=== PATIENT | female | born 1930 | race Caucasian/White ===

== ENCOUNTER 2016-11-22 07:53 | Observation (INO) ==
[2016-11-22] MEDS ORDERED: Aspirin 81 MG TAB.CHEW PO ONE (07:55)
[2016-11-22] MEDS ORDERED: Nitroglycerin 0.4 MG TAB.SUBL SL PRN (07:57)
[2016-11-22 08:22] LABS: Basophils % 0.2 %; Eosinophils # 0.3 K/mcL (0.0-0.6); Eosinophils % 2.4 %; Hematocrit 32.9 % (35.3-44.9); Hemoglobin 11.3 g/dL (11.5-15.4); Immature Granulocytes % 0.4 % (0-4); Lymphocytes # 1.5 K/mcL (0.6-4.6); Lymphocytes % 13.1 %; Mean Corpuscular HGB Conc 34.3 g/dL (31.6-35.5); Mean Corpuscular Hemoglobin 32.2 pg (28.0-33.3); Mean Corpuscular Volume 93.7 fL (83.0-100.0); Mean Platelet Volume 10.9 fL (9.4-12.4); Monocytes # 0.5 K/mcL (0.0-1.3); Monocytes % 4.5 %; Neutrophils # 9.1 K/mcL (1.6-8.9); Platelet Count 126 K/mcL (140-400); Red Blood Count 3.51 M/mcL (3.82-4.97); Red Cell Distribution Width 12.6 % (11.5-14.5); Segmented Neutrophils % 79.4 %
[2016-11-22 08:23] LABS: INR 1.1; Prothrombin Time 11.5 Seconds (9.4-12.1)
[2016-11-22 08:26] LABS: Activated Partial Thrombo Time 26.4 Seconds (26.0-36.0)
--- NOTE | 2016-11-22 08:28 | Emergency Department Note ---
Disposition Clinical Impression: Chest pain, Diabetes, Dehydration, Renal failure Disposition: Admitted As Inpatient Condition: Fair Referrals: Say Vidales [Primary Care Provider] - Forms: ED Satisfaction Letter Time of Disposition: 10:55 (gustavo rojas [facility]) Chest Pain HPI - General Chief Complaint: ED Chest Pain Stated Complaint: chest pain/ elevated glucose Time Seen by Provider: 11/22/16 08:00 Source: patient, EMS Mode of arrival: EMS Limitations: other (dementia) - History of Present Illness Pt complaint: chest pain Onset (ago): unknown Duration: now resolved Onset: awoke with symptoms Pain Location: substernal Severity: moderate, severe Severity scale (1-10): 7 Quality: tightness Pain Radiation: none Improves with: nothing Worsens with: nothing Associated symptoms: Denies: nausea, vomiting, diaphoresis, dyspnea, sense of impending doom, syncope, palpitations, fever, cough, leg swelling Treatments prior to arrival chest pain: aspirin - Related Data Home Medications Medication Instructions Recorded Confirmed Aspirin 81 mg PO DAILY 12/29/14 11/22/16 Insulin Glargine,Hum.rec.anlog 8 units SQ HS 12/29/14 11/22/16 [Lantus Solostar] Insulin LISPRO [HumaLOG] See Protocol SQ TIDWM 12/29/14 11/22/16 Levothyroxine [Synthroid] 88 mcg PO DAILY 12/29/14 11/22/16 Raloxifene [Evista] 60 mg PO DAILY 12/29/14 11/22/16 Previous Rx's Medication Instructions Recorded Acetaminophen [Tylenol] 650 mg PO Q6HR PRN #30 tablet 01/03/15 Carbidopa/Levodopa [Sinemet 1 each PO TID tablet 04/09/16 10] Memantine [Namenda] 10 mg PO BID #0 tablet 04/09/16 Allergies Allergy/AdvReac Type Severity Reaction Status Date / Time Sulfa (Sulfonamide Allergy Hives Verified 04/04/16 08:45 Antibiotics) All systems ED: reviewed and negative except as stated. Review of Systems: As Per HPI Constitutional: Denies: fever Eyes: Denies: eye pain ENT ED: Denies: ear pain Cardiovascular: Reports: chest pain Respiratory: Denies: cough Gastrointestinal: Denies: abdominal pain, nausea Genitourinary: Denies: urgency Musculoskeletal: Denies: back pain Integumentary: Denies: rash Neurological: Denies: headache Psychiatric: Denies: anxiety Endocrine: Denies: fatigue Hematological/Lymphatic: Denies: easy bleeding Allergic/Immunologic: Denies: facial swelling Chest Pain PMH - Past Medical History Medical history: Reports: dementia, diabetes, hypertension, thyroid disease Psychiatric history: Reports: no psych history - Social History Smoking Status: Never smoker Alcohol use: Reports: none Drug use: Reports: none Physical Exam - General Limitations: other (demetia) General appearance: alert, in no apparent distress, cachectic - Head Head exam: atraumatic, normocephalic, normal inspection - Eye Eye exam: Present: normal appearance, PERRL, EOMI - ENT ENT exam: normal exam, normal oropharynx, mucous membranes moist, normal external ear exam - Neck Neck exam: Present: normal inspection, full ROM, trachea midline - Chest Chest inspection: Present: normal inspection, symmetric chest wall rise - Respiratory Respiratory exam: Present: normal lung sounds bilaterally - Cardiovascular Cardiovascular exam: Present: regular rate, normal rhythm, normal heart sounds - Abdominal Exam Abdominal exam: Present: soft, Non-Tender, normal bowel sounds. Absent: mass, pulsatile mass - Extremities Exam Extremities exam: Present: normal inspection, full ROM, normal capillary refill. Absent: tenderness, pedal edema, joint swelling, calf tenderness - Expanded Lower Extremity Exam Neurovascular/Tendon exam: Present: normal capillary refill, normal fine/light touch Gait: observed and normal - Back Exam Back exam: Present: normal inspection, full ROM. Absent: muscle spasm - Neurological Exam Neurological exam: Present: alert, oriented X3, CN II-XII intact, normal gait - Psychiatric Psychiatric exam: Present: normal affect, normal mood - Skin Skin exam: Present: warm, dry, intact, normal color Course Course Narrative: pt seen and examined admitted due to renal failure and dehydratio showing kidney function decline Vital Signs Temperature 98.5 F 11/22/16 07:55 Pulse Rate 88 11/22/16 07:55 Respiratory Rate 18 11/22/16 07:55 Blood Pressure 153/72 11/22/16 07:55 O2 Sat by Pulse Oximetry 96 11/22/16 07:55 Temperature 98.5 F 11/22/16 07:58 Pulse Rate 88 11/22/16 07:58 Respiratory Rate 18 11/22/16 07:58 Blood Pressure 153/72 11/22/16 07:58 O2 Sat by Pulse Oximetry 98 11/22/16 08:05 Oxygen Delivery Oxygen Delivery Room Air Chest Pain - MDM Narrative Medical decision making narrative: poorly controlled diabetes ad metabolic imbalance - Differential Diagnosis Likely: chest pain - Medical Records Medical records reviewed: Yes I reviewed the patient's medical records. - Lab Data Lab results reviewed: Yes I reviewed the patient's lab results. Lab Results 11/22/16 11/22/16 Range/Units 08:05 08:06 POC Glucose 450 H* 403 H* (58-89) - Radiology Data Radiology results reviewed: Yes I reviewed the patient's radiology results. ITS Impressions Chest X-Ray 11/22/16 07:55 IMPRESSION: Overall stable appearing chest without acute cardiopulmonary process. D/ / Baljeet Massey MD / Baljeet Massey MD Interpreting Provider: Baljeet Massey MD - EKG Data EKG attestation: Yes I reviewed and interpreted this EKG. EKG results narrative: Sinus rhythm and incomplete right bundle-branch block rate 88 OK 167 QRS 91 QT 350 access -73 Heart Score - Score History: Slightly Suspicious EKG: Normal Age: Greater than 65 Risk Factors: 1-2 risk factors Troponin: Less than normal limit HEART Score Total: 3 Critical Care Time Critical Care Time: No
[2016-11-22 08:33] LABS: Calcium 9.6 mg/dL (8.6-10.8); Potassium 4.7 mEq/L (3.5-4.5)
[2016-11-22] MEDS ORDERED: Insulin Regular, Human 100 UNIT/ML SQ ONE (08:38)
[2016-11-22 09:29] LABS: Bilirubin,Urine Negative (Negative); Blood,Urine Negative (Negative); Clarity,Urine Clear (Clear); Color,Urine Yellow (Yellow); Glucose,Urine (UA) 500 mg/dL (Normal); Ketones,Urine 80 mg/dL (Negative); Leukocyte Esterase,Urine Negative (Negative); Nitrite,Urine Negative (Negative); Protein,Urine Negative (Neg-Trace); Urobilinogen,Urine Normal (Normal)
[2016-11-22] MEDS ORDERED: 0.9 % Sodium Chloride 1,000 ML IVC ONE (10:34)
[2016-11-22] MEDS ORDERED: Dextrose Gel 15 GM PO PRN ×2 (11:12)
[2016-11-22] MEDS ORDERED: *HR* Dextrose 50 % in Water (Syg) 50 ML SYRINGE IVP PRN (11:12)
[2016-11-22] MEDS ORDERED: Acetaminophen 325 MG TABLET PO PRN (11:12)
[2016-11-22] MEDS ORDERED: 0.9 % Sodium Chloride 1,000 ML IVC SCH (11:12)
[2016-11-22] MEDS ORDERED: Naloxone 0.4 MG/ML INJ IVP PRN (11:12)
[2016-11-22] MEDS ORDERED: D5% in Water 1,000 ML IVC PRN (11:12)
[2016-11-22] MEDS ORDERED: Ondansetron ODT 4 MG TAB.RAPDIS SL PRN (11:12)
[2016-11-22] MEDS: Insulin LISPRO 300 UNITS/3 ML VIAL SQ SCH ×2 (12:14→16:44)
--- NOTE | 2016-11-22 14:25 | Internal Med History&Physical ---
Date of Encounter: 11/22/16 Time of Encounter: 13:50 Assessment and Plan (1) Chest pain Current visit: Yes Status: Acute Now resolved. Etiology not certain. Repeat cardiac enzymes were ordered through emergency room. Qualifiers: Chest pain type: precordial pain Qualified Code(s): R07.2 - Precordial pain (2) Parkinson disease Current visit: No Status: Chronic Continue Sinemet (3) Diabetes Current visit: Yes Status: Acute Hemoglobin A1c was 5.1% on 04/10/2016. Continue Levemir and do Accu-Cheks with SSI. Qualifiers: Diabetes mellitus type: type 2 Diabetes mellitus complication status: with kidney complications Diabetes mellitus complication detail: with chronic kidney disease Diabetes mellitus intermediate frame tender insulin use: with intermediate frame tender use Chronic kidney disease stage: stage 3 (moderate) Qualified Code(s): E11.22 - Type 2 diabetes mellitus with diabetic chronic kidney disease; N18.3 - Chronic kidney disease, stage 3 (moderate); Z79.4 - intermediate (current) use of insulin (4) CKD (chronic kidney disease) stage 3, GFR 30-59 ml/min Current visit: Yes Status: Acute She was unaware of this. Will monitor renal indices as needed. (5) Hypertension Current visit: No Status: Chronic She was given Toprol and lisinopril at the March 2016 discharge. Neither of these are listed on her home medication list at present. We will start Toprol Qualifiers: Hypertension type: essential hypertension Qualified Code(s): I10 - Essential (primary) hypertension (6) Hypothyroidism Current visit: No Status: Chronic TSH was normal at 1.338 on 04/10/2016. Continue present dose Synthroid. Qualifiers: Hypothyroidism type: unspecified Qualified Code(s): E03.9 - Hypothyroidism , unspecified Internal Medicine - H&P: HPI Chief complaint: Chest pain Admitted From: Home Plans for Post Hospital Care: Home History of present illness: Ms. Moore is a 85 year old female who came to emergency room stating she was awakened approximately 0500 by a discomfort in her chest that radiated to her back. She describes it as a sensation of "someone sitting on me". She rates its severity at a 10 over 10. She waited until her daughter came approximately 0700 and told her daughter about the pain. She was brought to emergency room and evaluated and admitted to MedSurg floor for ongoing care needs. She states she is pain-free at the present time. She denies previous similar episode of pain. She denies dyspnea or cough. Her cardiovascular history is significant for hypertension but no HI heart failure angina DVT or pulmonary embolus. An echocardiogram June 2013 showed mild concentric LVH with LVEF 70% and mild LV diastolic dysfunction. No significant valvular abnormalities were seen. She does not remember if she has had EST or heart catheter in the past. Past Med Surg Social Fam HX - Past Medical History Medical history: cancer, dementia, diabetes, hypertension, thyroid disease Psychiatric history: no psych history - Social History Smoking Status: Never smoker Smokeless Tobacco Status: No Alcohol use: none Drug use: none - Family History Mother Adopted: No Family Member Ethnicity: Non- Living Status: Hx Family Cardiac Disorders: No Hx Family Respiratory Disorders: No Hx Family Cancer: Yes Hx Family GI Disorders: No Hx Family Endocrine Disorder: No Hx Family Neuromuscular Disorders: No Hx Family Neurologic Disorders: No Hx Family HEENT Disorders: No Hx Family Autoimmune Disorders: No Internal Medicine - H&P: Meds Aspirin 81 mg PO DAILY 12/29/14 [History] Insulin Glargine,Hum.rec.anlog [Lantus Solostar] 8 units SQ HS 12/29/14 [History ] Insulin LISPRO [HumaLOG] See Protocol SQ TIDWM 12/29/14 [History] Levothyroxine [Synthroid] 88 mcg PO DAILY 12/29/14 [History] Raloxifene [Evista] 60 mg PO DAILY 12/29/14 [History] Acetaminophen [Tylenol] 650 mg PO Q6HR PRN #30 tablet 01/03/15 [Rx] Carbidopa/Levodopa 10/100 [Sinemet 10/100] 1 each PO TID tablet 04/09/16 [Rx] Memantine [Namenda] 10 mg PO BID #0 tablet 04/09/16 [Rx] Allergies Sulfa (Sulfonamide Antibiotics) Allergy (Verified 04/04/16 08:45) Hives All Systems PM: A 10-system review of systems was performed and is negative for pertinent findings except as documented above in the HPI. Review of systems: Gen.: Her weight has been stable since the October 2014 hospitalization at approximately 53 kg. Cardiovascular: As per history of present illness Respiratory: She is a lifelong nonsmoker and has no known chronic lung disease. GI: She was hospitalized at [facility] 2013 with GI bleed. She has no known disorders of her liver gallbladder or exocrine pancreas. : No history of hematuria dysuria or kidney stones. She has CKD stage III but does not follow with a home care physical therapist. Neurologic: She has had no large distribution strokes or seizures. She has a diagnosis of dementia with MMSE score of 20/30 during her June 2013 hospitalization. She was started on Aricept at the time but this has been discontinued and she is now on Namenda. She has a diagnosis of Parkinson's disease. Endocrine: She has hypothyroidism, DM 2, and hyperlipidemia Hematology/oncology: She has had right breast cancer with bilateral mastectomies in 2001. She is presumed cancer free. She has had anemia in the past with anemia testing September 2015 showing no factor deficiency. Psychiatric: she has occasional anxiety and depression but no other mental health issues Musk skeletal: She has DJD osteoporosis and has had bilateral carpal tunnel syndrome. She does not have known gout. - Constitutional Vitals: Temp Pulse Resp BP Pulse Ox 98.5 F 83 16 117/81 96 11/22/16 11:49 11/22/16 11:49 11/22/16 11:49 11/22/16 11:49 11/22/16 11:49 Exam: Gen.: She is a well-developed well-nourished female who is sitting in a chair at bedside and appears in no acute distress HEENT: Head is atraumatic and normocephalic. Eyes: EOMI. There is no scleral icterus. Mouth: Mucosa is moist. Neck: Supple and nontender. There is no thyromegaly noted. Heart: Regular without murmurs gallops or ectopics Lungs: No wheezes or crackles are heard. Abdomen: Soft and nontender. No masses or guarding noted. Exam is limited because she is in the seated position. Extremities: She has 1-2+ edema of the dorsum the feet and lower legs bilaterally. She has DJD changes of her hands. Neurologic: Mental status: She is able to answer questions but is minimally conversive otherwise. Cranial nerves: Smile is symmetric. Forehead wrinkles bilaterally. Tongue protrudes midline. EOMI. Motor: There is trivial pronator drift of the left hand. Right hand shows no drift. Cerebellar: Finger to nose is intact bilaterally. Skin: Warm and dry Internal Med - H&P Results - Labs CBC & Chem 7: 11/22/16 08:08 11/22/16 08:08
[2016-11-22] MEDS: Metoprolol XL (24 HR) Succ 25 MG TAB.ER.24H PO SCH (15:23)
--- NOTE | 2016-11-22 18:07 | Electrocardiograph Report ---
[address] [place], [place] [address] Test Date: 2016-11-22 Pat Name: Jossie Moore Department: [id number] Room: [facility] Gender: F Paperhanger: : [id number] Requested By: Sourav Salas Order Number: [id number] Reading MD: Eli Perdue Measurements Intervals [place] Rate: 88 P: 74 MN: 167 QRS: -73 QRSD: 91 T: 77 QT: 350 QTc: 395 Interpretive Statements SINUS RHYTHM INCOMPLETE RIGHT BUNDLE BRANCH BLOCK LEFT ANTERIOR FASCICULAR BLOCK ANTEROSEPTAL MYOCARDIAL INFARCTION, OF INDETERMINATE AGE Electronically Signed On 11-22-2016 18:06:05 EDT by Eli Perdue
[2016-11-22] MEDS ORDERED: NON-FORMULARY MEDICATION 1 EACH EACH (Insulin Glargine,Hum.Rec.Anlog [Lantus Solostar] 8 U SQ SCH (21:00)
[2016-11-22] MEDS ORDERED: Insulin LISPRO 300 UNITS/3 ML VIAL SQ SCH (21:00)
[2016-11-22] MEDS ORDERED: Insulin DETEMIR 100 UNIT/ML X5UNITS SQ SCH (21:00)
[2016-11-23 04:42] LABS: BUN/Creatinine Ratio 24 (6-26); Blood Urea Nitrogen 19 mg/dL (7-20); Calcium 8.9 mg/dL (8.6-10.8); Carbon Dioxide 21 mEq/L (19-29); Chloride 109 mEq/L (98-109); Osmolality,Calculated 295 (280-300); Potassium 3.5 mEq/L (3.5-4.5); Sodium 143 mEq/L (136-145); eGFR For African Americans > 60 (> 60); eGFR For Non-African Americans > 60 (> 60)
[2016-11-23 05:03] LABS: Glucose 32 mg/dL (70-99)
[2016-11-23] MEDS: Metoprolol XL (24 HR) Succ 25 MG TAB.ER.24H PO SCH (06:31)
[2016-11-23 07:01] VITALS: BP 157/77
[2016-11-23] MEDS: Insulin LISPRO 300 UNITS/3 ML VIAL SQ SCH (08:02)
[2016-11-23] MEDS ORDERED: Aspirin 81 MG TAB.CHEW PO SCH (09:00)
--- NOTE | 2016-11-23 09:41 | Discharge Summary ---
Date of Encounter: 11/23/16 Time of Encounter: 09:25 - Discharge Diagnosis (1) Chest pain Priority: Primary Status: Resolved Qualifiers: Chest pain type: precordial pain Qualified Code(s): R07.2 - Precordial pain (2) Parkinson disease Priority: Secondary Status: Chronic (3) Diabetes Priority: Secondary Status: Chronic Qualifiers: Diabetes mellitus type: type 2 Diabetes mellitus complication status: with kidney complications Diabetes mellitus complication detail: with chronic kidney disease Diabetes mellitus intermodal customer service insulin use: with long-term use Chronic kidney disease stage: stage 3 (moderate) Qualified Code(s): E11.22 - Type 2 diabetes mellitus with diabetic chronic kidney disease; N18.3 - Chronic kidney disease, stage 3 (moderate); Z79.4 - termite treater helper (current) use of insulin (4) Hypertension Priority: Secondary Status: Chronic Qualifiers: Hypertension type: essential hypertension Qualified Code(s): I10 - Essential (primary) hypertension (5) Hypothyroidism Priority: Secondary Status: Chronic Qualifiers: Hypothyroidism type: unspecified Qualified Code(s): E03.9 - Hypothyroidism , unspecified - Discharge Medications Prescriptions: Bumetanide 0.5 mg PO DAILY #30 tablet Lisinopril [Zestril] 10 mg PO DAILY #30 tablet Metoprolol Succinate 25 mg PO DAILY #30 tab.er.24h Nitroglycerin [Nitrostat] 0.4 mg SL Q5M PRN #1 vial PRN Reason: Pain Home Medications: Aspirin 81 mg PO DAILY 12/29/14 [History] Insulin Glargine,Hum.rec.anlog [Lantus Solostar] 8 units SQ HS 12/29/14 [History ] Insulin LISPRO [HumaLOG] See Protocol SQ TIDWM 12/29/14 [History] Levothyroxine [Synthroid] 88 mcg PO DAILY 12/29/14 [History] Raloxifene [Evista] 60 mg PO DAILY 12/29/14 [History] Acetaminophen [Tylenol] 650 mg PO Q6HR PRN #30 tablet 01/03/15 [Rx] Carbidopa/Levodopa 10/100 [Sinemet 10/100] 1 each PO TID tablet 04/09/16 [Rx] Memantine [Namenda] 10 mg PO BID #0 tablet 04/09/16 [Rx] Bumetanide 0.5 mg PO DAILY #30 tablet 11/23/16 [Rx] Lisinopril [Zestril] 10 mg PO DAILY #30 tablet 11/23/16 [Rx] Metoprolol Succinate 25 mg PO DAILY #30 tab.er.24h 11/23/16 [Rx] Nitroglycerin [Nitrostat] 0.4 mg SL Q5M PRN #1 vial 11/23/16 [Rx] Allergies/Adverse Reactions: Allergies Sulfa (Sulfonamide Antibiotics) Allergy (Verified 04/04/16 08:45) Hives Date of admission: 11/22/16 10:57 Primary care physician: Say Vidales Consults: 11/22/16 11:42 Consult to Immunology Specialist [CONS] Routine Reason for SW Consult: D/C planning 11/22/16 12:12 Consult to Occupational Therapy [CONS] Routine Comment: Evaluate, develop and implement POC Reason for Consult: Weakness Consult to Physical Therapy [CONS] Routine Comment: Evaluate, develop and implement POC Reason for Consult: Weakness - Patient Status Disposition: Home Health Service Condition: Fair Functional capacity at discharge: uses cane/walker Overall status at discharge: patient is progressing back to baseline - Discharge Instructions Follow Up With: Say Vidales [Primary Care Provider] - 1 week - Diet and Activity Activity: resume usual activities as tolerated Diet: advance to your usual diet Hospital course: Ms. Moore is a 85 year old female who came to emergency room stating she was awakened approximately 0500 by a discomfort in her chest that radiated to her back. She describes it as a sensation of "someone sitting on me". She rates its severity at a 10 over 10. She waited until her daughter came approximately 0700 and told her daughter about the pain. She was brought to emergency room and evaluated and admitted to [facility] for ongoing care needs. Initial orders were written by the emergency room physician. I saw her on November 22 and performed the history and physical. Repeat cardiac enzymes showed no evidence of myocardial damage. I told her I was not certain of the etiology of her pain. She had no recurrence of pain during her hospital stay. I started her on Toprol-XL to assist in blood pressure control and lessen her risk of angina pain. She will also be given a prescription for Nitrostat for prn use at discharge. She will also be started on low dose Bumex. She will be given a prescription for lisinopril 10 mg daily. She does not know her present home dose. IV fluids were initially given but these were stopped since she had edema and no evidence of dehydration. Her azotemia resolved with BUN and creatinine being 19 and 0.80 respectively on November 23. On November 23 she felt stable for discharge home. She will follow with her PCP Dr. Say Vidales within 1 week. - Time Spent with Patient Total time spent providing and/or coordinating discharge services: - Constitutional Vitals: Temp Pulse Resp BP Pulse Ox 98.0 F 78 18 157/77 96 11/23/16 07:03 11/23/16 07:03 11/23/16 07:03 11/23/16 07:03 11/23/16 07:03
--- NOTE | 2016-11-23 09:53 | Physician Discharge Referral ---
Home Health/Hosp Referral Info Transfer to: Home Health Attending Provider: J Carlos Provider in Charge Post Discharge: PCP (Say Vidales M.D.) - Diagnosis (1) Chest pain Priority: Primary Status: Resolved (2) Parkinson disease Priority: Secondary Status: Chronic (3) Diabetes Priority: Secondary Status: Chronic (4) Hypertension Priority: Secondary Status: Chronic (5) Hypothyroidism Priority: Secondary Status: Chronic - Respiratory Orders Smoking Cessation: Smoking cessation has been advised. For more information, call the [place] Tobacco Quit Line at 3-006-TCYG-NOW. - Diet/Nutrition Diet/Nutrition Orders: No Added Salt (NELLY), No Concentrated Sweets - Activity Activity Orders: Walker - Services Needed Following services are medically necessary services: Nursing, Home Health Aide, Physical Therapy, Occupational Therapy - Transfer Medications Prescriptions: Bumetanide 0.5 mg PO DAILY #30 tablet Lisinopril [Zestril] 10 mg PO DAILY #30 tablet Metoprolol Succinate 25 mg PO DAILY #30 tab.er.24h Nitroglycerin [Nitrostat] 0.4 mg SL Q5M PRN #1 vial PRN Reason: Pain Home Medications: Aspirin 81 mg PO DAILY 12/29/14 [History] Insulin Glargine,Hum.rec.anlog [Lantus Solostar] 8 units SQ HS 12/29/14 [History ] Insulin LISPRO [HumaLOG] See Protocol SQ TIDWM 12/29/14 [History] Levothyroxine [Synthroid] 88 mcg PO DAILY 12/29/14 [History] Raloxifene [Evista] 60 mg PO DAILY 12/29/14 [History] Acetaminophen [Tylenol] 650 mg PO Q6HR PRN #30 tablet 01/03/15 [Rx] Carbidopa/Levodopa 10/100 [Sinemet 10/100] 1 each PO TID tablet 04/09/16 [Rx] Memantine [Namenda] 10 mg PO BID #0 tablet 04/09/16 [Rx] Bumetanide 0.5 mg PO DAILY #30 tablet 11/23/16 [Rx] Lisinopril [Zestril] 10 mg PO DAILY #30 tablet 11/23/16 [Rx] Metoprolol Succinate 25 mg PO DAILY #30 tab.er.24h 11/23/16 [Rx] Nitroglycerin [Nitrostat] 0.4 mg SL Q5M PRN #1 vial 11/23/16 [Rx] Allergies/Adverse Reactions: Allergies Sulfa (Sulfonamide Antibiotics) Allergy (Verified 04/04/16 08:45) Hives Certification: Further, I certify that my clinical findings support that this patient is homebound (i.e. absences from home require considerable and taxing effort and are for medical reasons or mormon services or infrequently or short duration when for other reasons) because: Homebound Reason: Leaving home requires considerable and taxing effort due to condition (Impaired ambulation ability secondary to Parkinson's disease and leg edema) Attestation: My signature below is to certify that this patient is under my care and that I, or nurse practitioner, or a physician's phlebotomist medical lab assistant working with me, has a face-to -face encounter with this patient.
== END 2016-11-23 12:05 | disposition home health service (06) ==
LOC: EMEROOPIK 07:53 → INPPIK 07:53
PROVIDERS: ADMIT Internal Medicine; ATTEND Internal Medicine

== ENCOUNTER 2017-12-08 16:08 | Observation (INO) ==
[2017-12-08] MEDS ORDERED: 0.9 % Sodium Chloride 500 ML IVC ONE (16:30)
--- NOTE | 2017-12-08 16:32 | Emergency Department Note ---
Disposition Clinical Impression: Dehydration Pneumonia Qualifiers: Pneumonia type: due to unspecified organism Laterality: right Lung location: unspecified part of lung Qualified Code(s): J18.9 - Pneumonia, unspecified organism Disposition: Admitted As Inpatient Time of Disposition: 18:10 (Dr Whitman) Altered Mental Status HPI - General Chief Complaint: ED General Medical Stated Complaint: DECLINE IN GENERAL HEALTH Time Seen by Provider: 12/08/17 16:18 Source: EMS Mode of arrival: EMS Limitations: altered mental status Nursing Notes Reviewed: Yes Vital Signs Reviewed: Yes - History of Present Illness MD complaint: confusion, decreased responsiveness Onset (ago): unknown Consistency of Symptoms: getting worse Context: other (The patient was sent in from home secondary to increasing lethargy and weakness. The patient's family went on vacation last week and the patient stayed in a respite place and subsequently picked up a couple days ago. Since that time the patient has had decline in her mental status as well as increasing weakness with decreased by mouth intake and urine output.) Associated symptoms: Denies: chest pain, cough, diaphoresis, fever, chills, headaches, loss of appetite, malaise, nausea/vomiting, rash, seizure, shortness of breath, syncope, weakness, foul smelling urine, difficulty walking, diarrhea , incontinence - Related Data Home Medications Medication Instructions Recorded Confirmed Aspirin 81 mg PO DAILY 12/29/14 12/08/17 Insulin Glargine,Hum.rec.anlog 5 units SQ HS 12/29/14 12/08/17 [Lantus Solostar] Insulin LISPRO [HumaLOG] See Protocol SQ TIDWM 12/29/14 12/08/17 Levothyroxine [Synthroid] 88 mcg PO DAILY 12/29/14 12/08/17 Raloxifene [Evista] 60 mg PO DAILY 12/29/14 12/08/17 Calcium Carbonate/Vitamin D3 2 each PO DAILY 12/08/17 12/08/17 [Calcium 600-Vit D3 200 Tablet] Vit C/E/Zn/Coppr/Lutein/Zeaxan 2 cap PO DAILY 12/08/17 12/08/17 [Preservision Areds 2 Softgel] Previous Rx's Medication Instructions Recorded Acetaminophen [Tylenol] 650 mg PO Q6HR PRN #30 tablet 01/03/15 Carbidopa/Levodopa 10/100 [Sinemet 1 each PO TID tablet 04/09/16 10100] Memantine [Namenda] 10 mg PO BID #0 tablet 04/09/16 Nitroglycerin [Nitrostat] 0.4 mg SL Q5M PRN #1 vial 11/23/16 Allergies Allergy/AdvReac Type Severity Reaction Status Date / Time Sulfa (Sulfonamide Allergy Hives Verified 04/04/16 08:45 Antibiotics) Limitations: ROS unobtainable due to patients medical condition Past Medical History - Past Medical History Medical history: Reports: asthma, cancer, dementia, diabetes, hypertension, thyroid disease Psychiatric history: Reports: no psych history - Social History Smoking Status: Never smoker Smokeless Tobacco Status: No Alcohol use: Reports: none Drug use: Reports: none Physical Exam - General Limitations: no limitations General appearance: in no apparent distress, lethargic - Head Head exam: atraumatic, normocephalic, normal inspection, other (Facial erythema) - Eye Eye exam: Present: normal appearance, PERRL, EOMI. Absent: scleral icterus, conjunctival injection - ENT ENT exam: normal exam, normal oropharynx, mucous membranes moist - Neck Neck exam: Present: normal inspection, full ROM, trachea midline. Absent: meningismus, lymphadenopathy, thyromegaly - Chest Chest inspection: Present: normal inspection, symmetric chest wall rise - Respiratory Respiratory exam: Absent: respiratory distress, stridor - Expanded Respiratory Exam Location: rales: Right, Left, Upper, Lower - Cardiovascular Cardiovascular exam: Present: regular rate, normal rhythm, normal heart sounds - Abdominal Exam Abdominal exam: Present: soft, Non-Tender. Absent: tenderness, distention, guarding, rebound, rigidity - Extremities Exam Extremities exam: Present: normal capillary refill, pedal edema. Absent: joint swelling, calf tenderness - Neurological Exam Neurological exam: Present: alert, oriented X3, CN II-XII intact - Psychiatric Psychiatric exam: Present: normal affect, normal mood - Skin Skin exam: Present: warm, intact, normal color Course Course Narrative: Hemodynamically stable with improvement of her mentation after IV fluid resuscitation. Vital Signs Temperature 99.1 F 12/08/17 16:17 Pulse Rate 81 12/08/17 16:17 Respiratory Rate 16 12/08/17 16:17 Blood Pressure 187/78 12/08/17 16:17 O2 Sat by Pulse Oximetry 95 12/08/17 16:17 Temperature 98.6 F 12/09/17 04:05 Pulse Rate 86 12/09/17 04:05 Respiratory Rate 20 12/09/17 04:05 Blood Pressure 151/84 12/09/17 04:05 O2 Sat by Pulse Oximetry 94 12/09/17 04:05 Oxygen Delivery Oxygen Delivery Room Air Altered Mental Status - Differential Diagnosis Likely: altered mental status, delirium, dementia, hypoglycemia, hyponatremia, psychiatric disease, sepsis. Unlikely: subarachnoid hemorrhage, substance use - Medical Records Medical records reviewed: Yes I reviewed the patient's medical records. - Lab Data Lab results reviewed: Yes I reviewed the patient's lab results. Result diagrams: 12/08/17 16:42 12/08/17 16:42 Lab Results 12/08/17 12/08/17 12/08/17 Range/Units 16:42 16:42 16:42 WBC 7.9 (4.3-11.1) K/mcL RBC 3.39 L (3.82-4.97) M/mcL Hgb 10.9 L (11.5-15.4) g/dL Hct 32.5 L (35.3-44.9) % MCV 95.9 (83.0-100.0) fL MCH 32.2 (28.0-33.3) pg MCHC 33.5 (31.6-35.5) g/dL RDW 13.2 (11.5-14.5) % Plt Count 117 L (140-400) K/mcL MPV 10.6 (9.4-12.4) fL Immature Gran % 0.5 (0-4) % Seg Neutrophils % 65.8 % Lymphocytes % 22.9 % Monocytes % 7.7 % Eosinophils % 2.8 % Basophils % 0.3 % Neutrophils # 5.2 (1.6-8.9) K/mcL Lymphocytes # 1.8 (0.6-4.6) K/mcL Monocytes # 0.6 (0.0-1.3) K/mcL Eosinophils # 0.2 (0.0-0.6) K/mcL Basophils # 0.0 (0.0-0.2) K/mcL PT 11.1 (9.4-12.1) Seconds INR 1.0 APTT 24.2 L (26.0-36.0) Seconds Sodium 140 (136-145) mEq/L Potassium 4.0 (3.5-5.1) mEq/L Chloride 103 (98-107) mEq/L Carbon Dioxide 31 H (23-29) mEq/L BUN 21 (8-23) mg/dL Creatinine 1.25 H (0.60-1.20) mg/dL Est GFR ( Amer) 49 L (> 60) Est GFR (Non-Af Amer) 41 L (> 60) BUN/Creatinine Ratio 17 (6-26) Glucose 75 (70-105) mg/dL Calculated Osmolality 292 (280-300) Lactic Acid (0.5-2.2) mmol/L Calcium 9.5 (8.6-10.3) mg/dL Total Bilirubin 0.7 (0.3-1.0) mg/dL Direct Bilirubin 0.1 (0.0-0.2) mg/dL Indirect Bilirubin 0.6 (0.0-1.2) mg/dL AST 19 (13-39) Units/L ALT 16 (7-52) Units/L Alkaline Phosphatase 53 (34-104) Units/L Ammonia (16-53) mcmol/L Creatine Kinase 70 (30-223) Units/L Troponin I < 0.03 (< 0.04) ng/mL Serum Total Protein 5.8 L (6.4-8.9) g/dL Albumin 3.4 L (3.5-5.7) g/dL Globulin 2.4 (2.4-3.5) g/dL Albumin/Globulin Ratio 1.4 (1.1-2.2) TSH 21.957 H (0.340-5.600) mcIU/mL Urine Color (Yellow) Urine Clarity (Clear) Urine pH (5.0-8.0) pH Units Ur Specific [place] (1.010-1.025) Urine Protein (Neg-Trace) mg/dL Urine Glucose (UA) (Normal) mg/dL Urine Ketones (Negative) mg/dL Urine Blood (Negative) Urine Nitrite (Negative) Urine Bilirubin (Negative) Urine Urobilinogen (Normal) mg/dL Ur Leukocyte Esterase (Negative) Ur Culture Indicated? (NO) 12/08/17 12/08/17 12/08/17 Range/Units 16:42 16:42 17:06 WBC (4.3-11.1) K/mcL RBC (3.82-4.97) M/mcL Hgb (11.5-15.4) g/dL Hct (35.3-44.9) % MCV (83.0-100.0) fL MCH (28.0-33.3) pg MCHC (31.6-35.5) g/dL RDW (11.5-14.5) % Plt Count (140-400) K/mcL MPV (9.4-12.4) fL Immature Gran % (0-4) % Seg Neutrophils % % Lymphocytes % % Monocytes % % Eosinophils % % Basophils % % Neutrophils # (1.6-8.9) K/mcL Lymphocytes # (0.6-4.6) K/mcL Monocytes # (0.0-1.3) K/mcL Eosinophils # (0.0-0.6) K/mcL Basophils # (0.0-0.2) K/mcL PT (9.4-12.1) Seconds INR APTT (26.0-36.0) Seconds Sodium (136-145) mEq/L Potassium (3.5-5.1) mEq/L Chloride (98-107) mEq/L Carbon Dioxide (23-29) mEq/L BUN (8-23) mg/dL Creatinine (0.60-1.20) mg/dL Est GFR ( Amer) (> 60) Est GFR (Non-Af Amer) (> 60) BUN/Creatinine Ratio (6-26) Glucose (70-105) mg/dL Calculated Osmolality (280-300) Lactic Acid 0.9 (0.5-2.2) mmol/L Calcium (8.6-10.3) mg/dL Total Bilirubin (0.3-1.0) mg/dL Direct Bilirubin (0.0-0.2) mg/dL Indirect Bilirubin (0.0-1.2) mg/dL AST (13-39) Units/L ALT (7-52) Units/L Alkaline Phosphatase (34-104) Units/L Ammonia 18 (16-53) mcmol/L Creatine Kinase (30-223) Units/L Troponin I (< 0.04) ng/mL Serum Total Protein (6.4-8.9) g/dL Albumin (3.5-5.7) g/dL Globulin (2.4-3.5) g/dL Albumin/Globulin Ratio (1.1-2.2) TSH (0.340-5.600) mcIU/mL Urine Color Light Yellow (Yellow) Urine Clarity Clear (Clear) Urine pH 7.0 (5.0-8.0) pH Units Ur Specific [place] 1.010 (1.010-1.025) Urine Protein Negative (Neg-Trace) mg/dL Urine Glucose (UA) Normal (Normal) mg/dL Urine Ketones Negative (Negative) mg/dL Urine Blood Negative (Negative) Urine Nitrite Negative (Negative) Urine Bilirubin Negative (Negative) Urine Urobilinogen Normal (Normal) mg/dL Ur Leukocyte Esterase Negative (Negative) Ur Culture Indicated? NO (NO) - Radiology Data Radiology results reviewed: Yes I reviewed the patient's radiology results. Chest X-Ray 12/08/17 16:29 IMPRESSION: Questionable mild asymmetric opacity in the right infrahilar region versus artifact from rotation and overlapping structures. Findings may be artifactual or related to focal airspace disease. Short-term follow-up with PA and lateral chest radiographs with improved positioning recommended to exclude underlying lesion. D/ / Sabine Sanchez MD / Sabine Sanchez MD Interpreting Provider: Sabine Sanchez MD Checklist - LKW: 3-4.5 hrs Add. Warnings/Precautions Patient/family understanding: The patient/family members have been counseled and understood the risk, benefit , and alternatives of treatment.
[2017-12-08 16:48] LABS: Basophils % 0.3 %; Eosinophils # 0.2 K/mcL (0.0-0.6); Eosinophils % 2.8 %; Hematocrit 32.5 % (35.3-44.9); Hemoglobin 10.9 g/dL (11.5-15.4); Immature Granulocytes % 0.5 % (0-4); Lymphocytes # 1.8 K/mcL (0.6-4.6); Lymphocytes % 22.9 %; Mean Corpuscular HGB Conc 33.5 g/dL (31.6-35.5); Mean Corpuscular Hemoglobin 32.2 pg (28.0-33.3); Mean Corpuscular Volume 95.9 fL (83.0-100.0); Mean Platelet Volume 10.6 fL (9.4-12.4); Monocytes # 0.6 K/mcL (0.0-1.3); Monocytes % 7.7 %; Neutrophils # 5.2 K/mcL (1.6-8.9); Platelet Count 117 K/mcL (140-400); Red Blood Count 3.39 M/mcL (3.82-4.97); Red Cell Distribution Width 13.2 % (11.5-14.5); Segmented Neutrophils % 65.8 %
[2017-12-08 16:55] LABS: Prothrombin Time 11.1 Seconds (9.4-12.1)
[2017-12-08 16:58] LABS: Activated Partial Thrombo Time 24.2 Seconds (26.0-36.0)
[2017-12-08 17:03] LABS: Alanine Aminotransferase 16 Units/L (7-52); Albumin 3.4 g/dL (3.5-5.7); Albumin/Globulin Ratio 1.4 (1.1-2.2); Alkaline Phosphatase 53 Units/L (34-104); Aspartate Amino Transferase 19 Units/L (13-39); BUN/Creatinine Ratio 17 (6-26); Bilirubin,Direct 0.1 mg/dL (0.0-0.2); Bilirubin,Indirect 0.6 mg/dL (0.0-1.2); Bilirubin,Total 0.7 mg/dL (0.3-1.0); Blood Urea Nitrogen 21 mg/dL (8-23); Calcium 9.5 mg/dL (8.6-10.3); Carbon Dioxide 31 mEq/L (23-29); Chloride 103 mEq/L (98-107); Creatine Kinase 70 Units/L (30-223); Globulin 2.4 g/dL (2.4-3.5); Glucose 75 mg/dL (70-105); Osmolality,Calculated 292 (280-300); Sodium 140 mEq/L (136-145); Total Protein 5.8 g/dL (6.4-8.9); eGFR For Non-African Americans 41 (> 60)
[2017-12-08 17:10] LABS: Bilirubin,Urine Negative (Negative); Blood,Urine Negative (Negative); Clarity,Urine Clear (Clear); Glucose,Urine (UA) Normal (Normal); Ketones,Urine Negative (Negative); Leukocyte Esterase,Urine Negative (Negative); Nitrite,Urine Negative (Negative); Protein,Urine Negative (Neg-Trace); Urobilinogen,Urine Normal (Normal)
[2017-12-08 17:11] LABS: Color,Urine Light Yellow (Yellow)
[2017-12-08 17:12] LABS: Troponin I < 0.03 ng/mL (< 0.04)
[2017-12-08 17:25] LABS: Thyroid Stimulating Hormone 21.957 mcIU/mL (0.340-5.600)
[2017-12-08] MEDS ORDERED: cefTRIAXone 2,000 MG in 0.9 % Sodium Chloride Mini Bag 100 ML IVPB ONE (17:40)
[2017-12-08] MEDS ORDERED: Nitroglycerin 0.4 MG TAB.SUBL SL PRN (18:59)
[2017-12-08] MEDS ORDERED: Acetaminophen 325 MG TABLET PO PRN (18:59)
[2017-12-08] MEDS ORDERED: Ibuprofen 400 MG TABLET PO PRN (18:59)
[2017-12-08] MEDS ORDERED: Naloxone 0.4 MG/ML INJ IVP PRN (18:59)
[2017-12-08] MEDS ORDERED: Ondansetron 4 MG/2 ML VIAL IVP PRN (18:59)
[2017-12-08] MEDS ORDERED: *HR* OxyCODONE Oral Soln 5 MG/5 ML UD.LIQ PO PRN (18:59)
[2017-12-08] MEDS ORDERED: Dextrose Gel 15 GM/37.5 ML TUBE PO PRN ×2 (19:59)
[2017-12-08] MEDS ORDERED: *HR* Dextrose 50 % in Water (Syg) 50 ML SYRINGE IVP PRN (19:59)
[2017-12-08] MEDS ORDERED: D5% in Water 1,000 ML IVC PRN (19:59)
[2017-12-08] MEDS ORDERED: Insulin DETEMIR 100 UNIT/ML per UNIT SQ ONE (21:00)
[2017-12-08] MEDS ORDERED: Insulin LISPRO 300 UNITS/3 ML VIAL SQ SCH (21:00)
[2017-12-09] MEDS: amLODIPine 5 MG TABLET PO SCH ×2 (01:17→09:45)
[2017-12-09] MEDS ORDERED: Aspirin 81 MG TAB.CHEW PO SCH (09:00)
[2017-12-09] MEDS ORDERED: Cholecalciferol (D-3) 1,000 UNIT TABLET PO SCH (09:00)
[2017-12-09] MEDS: Insulin LISPRO 300 UNITS/3 ML VIAL SQ SCH ×6 (09:51→17:52)
--- NOTE | 2017-12-09 12:13 | Internal Med History&Physical ---
Date of Encounter: 12/09/17 Time of Encounter: 11:30 Assessment and Plan (1) Third degree AV block Current visit: Yes Status: Acute Transient, now resolved. I spoke with her daughter who will come to the hospital and address the option of pacemaker placement with the patient. (2) Azotemia Current visit: Yes Status: Acute Creatinine was 0.84 on 01/16/2017 and 1.02 on 08/12/2017. Will give IV fluids and monitor labs. (3) Hypothyroidism Current visit: Yes Status: Chronic Daughter denies patient has missed doses of Synthroid. Will increase dose to 125 g daily. Qualifiers: Hypothyroidism type: unspecified Qualified Code(s): E03.9 - Hypothyroidism , unspecified (4) Hypertension Current visit: No Status: Chronic Probably inadequately controlled. She has been started on Norvasc. Continue to monitor. Qualifiers: Hypertension type: essential hypertension Qualified Code(s): I10 - Essential (primary) hypertension (5) Dementia Current visit: No Status: Chronic Continue Namenda. Repeat MMSE. Qualifiers: Dementia type: unspecified type Dementia behavioral disturbance: without behavioral disturbance Qualified Code(s): F03.90 - Unspecified dementia without behavioral disturbance (6) Parkinson disease Current visit: No Status: Chronic Continue Sinemet (7) Diabetes Current visit: No Status: Chronic Hemoglobin A1c was 5.1% on 04/10/2016. Recheck in a.m. Hold Lantus/Levemir and do Accu-Cheks with SSI. 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 Moore is a 87 year old female who was brought to emergency room after family reported increased lethargy and weakness over the preceding 24 hours. She was evaluated in emergency room and found to have anemia with acute renal insufficiency and elevated TSH. She was admitted to [facility] floor for ongoing care needs. She cannot give reliable history because of dementia. Daughter reports patient was at a local SNF for 10 days while family/caregivers were on vacation. Family returned from vacation and removed her from the long term on December 07. Over the next 24 hours she developed lethargy and weakness as per above. Her neurologic history is significant for dementia. MMSE score of 20/30 was obtained during a June 2013 hospitalization. She was started on Aricept at the time but is now on Namenda. She has a diagnosis of Parkinson's disease. There is no history of large distribution strokes or seizures. Past Med Surg Social Fam HX - Past Medical History Medical history: asthma, cancer, dementia, diabetes, hypertension, thyroid disease Additional medical history: hx of breast cancer. Parkinson's Psychiatric history: no psych history - Past Surgical History Additional surgical history: double mastectomy, multiple back surgeries, - Social History Smoking Status: Never smoker Smokeless Tobacco Status: No Alcohol use: none Drug use: none - Family History Mother History Unknown: Yes Adopted: No Family Member Ethnicity: Non- Living Status: Hx Family Cardiac Disorders: No Hx Family Respiratory Disorders: No Hx Family Cancer: Yes Hx Family GI Disorders: No Hx Family Endocrine Disorder: No Hx Family Neuromuscular Disorders: No Hx Family Neurologic Disorders: No Hx Family HEENT Disorders: No Hx Family Autoimmune Disorders: No Internal Medicine - H&P: Meds Aspirin 81 mg PO DAILY 12/29/14 [History] Insulin Glargine,Hum.rec.anlog [Lantus Solostar] 5 units SQ HS 12/29/14 [History ] Insulin LISPRO [HumaLOG] See Protocol SQ TIDWM 12/29/14 [History] Levothyroxine [Synthroid] 88 mcg PO DAILY 12/29/14 [History] Raloxifene [Evista] 60 mg PO DAILY 12/29/14 [History] Acetaminophen [Tylenol] 650 mg PO Q6HR PRN #30 tablet 01/03/15 [Rx] Carbidopa/Levodopa 10/100 [Sinemet 10/100] 1 each PO TID tablet 04/09/16 [Rx] Memantine [Namenda] 10 mg PO BID #0 tablet 04/09/16 [Rx] Nitroglycerin [Nitrostat] 0.4 mg SL Q5M PRN #1 vial 11/23/16 [Rx] Calcium Carbonate/Vitamin D3 [Calcium 600-Vit D3 200 Tablet] 2 each PO DAILY [History] Vit C/E/Zn/Coppr/Lutein/Zeaxan [Preservision Areds 2 Softgel] 2 cap PO DAILY [History] 3 Allergy/AdvReac Type Severity Reaction Status Date / Time Sulfa (Sulfonamide Allergy Hives Verified 04/04/16 08:45 Antibiotics) All Systems PM: A 10-system review of systems was performed and is negative for pertinent findings except as documented above in the HPI. Review of systems: Gen.: Her weight has increased from 53.977 kg on 11/22/2016 to 57.9 kg on admission now. Cardiovascular: She has hypertension but no TN heart failure angina DVT or pulmonary embolus. An echocardiogram 12/30/2014 showed LVEF 60-65%. There was mild diastolic dysfunction with E/A ratio of 0.8. No significant valvular abnormalities were seen. She does not remember if she has had EST or heart catheter in the past. She had an episode of unresponsiveness earlier this morning and telemetry strip showed third-degree AV block which quickly resolved. Respiratory: She is a lifelong nonsmoker and has no known chronic lung disease. GI: She was hospitalized at [facility] 2013 with GI bleed. She has no known disorders of her liver gallbladder or exocrine pancreas. : No history of hematuria dysuria or kidney stones. She has CKD stage III but does not follow with a wheel setter. Neurologic: As per history of present illness Endocrine: She has hypothyroidism, DM 2, and hyperlipidemia. TSH was significantly elevated in emergency room but daughter denies her missing doses of Synthroid. Hematology/oncology: She has had right breast cancer with bilateral mastectomies in 2001. She is presumed cancer free. She has had anemia in the past with anemia testing September 2015 showing no factor deficiency. Psychiatric: she has occasional anxiety and depression but no other mental health issues Musk skeletal: She has DJD osteoporosis and has had bilateral carpal tunnel syndrome. She does not have known gout. - Constitutional Vitals: Temp Pulse Resp BP Pulse Ox 98.6 F 86 20 151/84 94 12/09/17 04:05 12/09/17 04:05 12/09/17 04:05 12/09/17 04:05 12/09/17 04:05 Exam: Gen.: She is a well-developed well-nourished female lying comfortably in bed who appears in no acute distress HEENT: Head is atraumatic and normocephalic. Eyes: EOMI. There is no scleral icterus. Mouth: Mucosa is moist. Neck: Supple and nontender. There is no thyromegaly or adenopathy noted. Heart: Regular without murmurs gallops or ectopics Lungs: No wheezes or crackles are heard. Abdomen: Soft and nontender. No masses or guarding are noted. Extremities: She has trace to 1+ edema of the right dorsum foot and lower leg. The left leg shows 0 to trace edema. She has DJD changes of her hands. Neurologic: Mental status: She is able to answer a few questions but is slow in her response time. She is not conversational. Her answers are difficult to understand. She did not know her age or location at this time. Cranial nerves: Smile is symmetric. Forehead wrinkles bilaterally. Tongue protrudes midline. EOMI. Motor: There is no pronator drift. Cerebellar: Finger to nose is intact bilaterally. Skin: Warm and dry Internal Med - H&P Results - Labs CBC & Chem 7: 12/08/17 16:42 12/08/17 16:42
[2017-12-09 13:12] LABS: Basophils % 0.4 %; Eosinophils # 0.2 K/mcL (0.0-0.6); Eosinophils % 1.8 %; Hematocrit 31.5 % (35.3-44.9); Hemoglobin 10.7 g/dL (11.5-15.4); Immature Granulocytes % 0.2 % (0-4); Lymphocytes # 1.3 K/mcL (0.6-4.6); Lymphocytes % 14.7 %; Mean Corpuscular Hemoglobin 32.8 pg (28.0-33.3); Mean Corpuscular Volume 96.6 fL (83.0-100.0); Mean Platelet Volume 12.2 fL (9.4-12.4); Monocytes # 0.8 K/mcL (0.0-1.3); Monocytes % 9.8 %; Neutrophils # 6.3 K/mcL (1.6-8.9); Platelet Count 114 K/mcL (140-400); Red Blood Count 3.26 M/mcL (3.82-4.97); Red Cell Distribution Width 13.2 % (11.5-14.5); Segmented Neutrophils % 73.1 %
[2017-12-09 13:25] LABS: Calcium 8.7 mg/dL (8.6-10.3); Potassium 3.7 mEq/L (3.5-5.1)
--- NOTE | 2017-12-09 16:12 | Electrocardiograph Report ---
[address] [place] [address] Test Date: 2017-12-09 Pat Name: Jossie Moore Department: 9202 Room: [facility] Gender: F Credit Rating Checker: [id number] : 1930 Requested By: Baljeet Whitman Order Number: [id number] Reading MD: Jigna Gudino Measurements Intervals [place] Rate: 80 P: 80 NM: 166 QRS: -60 QRSD: 89 T: 79 QT: 368 QTc: 405 Interpretive Statements SINUS RHYTHM LEFT AXIS DEVIATION [QRS AXIS < -30] SEPTAL MYOCARDIAL INFARCTION [40+ ms Q WAVE IN V1/V2], OF INDETERMINATE AGE Electronically Signed On 12-09-2017 16:10:14 EDT by Jigna Gudino
--- NOTE | 2017-12-09 16:15 | Electrocardiograph Report ---
[address] [place], [place] [address] Test Date: 2017-12-08 Pat Name: Jossie Moore Department: 9201 Room: [facility] Gender: F Bulb Grader: [id number] : 1930 Requested By: Frank Price Order Number: [id number] Reading MD: Jigna Gudino Measurements Intervals [place] Rate: 78 P: 70 ME: 165 QRS: -72 QRSD: 92 T: 81 QT: 365 QTc: 398 Interpretive Statements SINUS RHYTHM LEFT AXIS DEVIATION POSSIBLE RIGHT VENTRICULAR CONDUCTION DELAY POSSIBLE SEPTAL MYOCARDIAL INFARCTION, OF INDETERMINATE AGE Electronically Signed On 12-09-2017 16:14:30 EDT by Jigna Gudino
[2017-12-09] MEDS ORDERED: Multivit/Ca/Min/Fe/FA 1 TAB TABLET PO SCH (17:00)
[2017-12-09 18:27] VITALS: BP 170/71
--- NOTE | 2017-12-09 19:14 | Discharge Summary ---
Date of Encounter: 12/09/17 Time of Encounter: 17:00 - Discharge Diagnosis (1) Third degree AV block Priority: Primary Status: Acute (2) Azotemia Priority: Secondary Status: Acute (3) Hypothyroidism Priority: Secondary Status: Chronic Qualifiers: Hypothyroidism type: unspecified Qualified Code(s): E03.9 - Hypothyroidism , unspecified (4) Hypertension Priority: Secondary Status: Chronic Qualifiers: Hypertension type: essential hypertension Qualified Code(s): I10 - Essential (primary) hypertension (5) Dementia Priority: Secondary Status: Chronic Qualifiers: Dementia type: unspecified type Dementia behavioral disturbance: without behavioral disturbance Qualified Code(s): F03.90 - Unspecified dementia without behavioral disturbance (6) Parkinson disease Priority: Secondary Status: Chronic (7) Diabetes Priority: Secondary Status: Chronic Qualifiers: Diabetes mellitus type: type 2 Diabetes mellitus assisted insulin use: with assisted use Diabetes mellitus complication status: with kidney complications Diabetes mellitus complication detail: with chronic kidney disease Chronic kidney disease stage: stage 3 (moderate) Qualified Code(s): E11.22 - Type 2 diabetes mellitus with diabetic chronic kidney disease; N18.3 - Chronic kidney disease, stage 3 (moderate); Z79.4 - keno terminal operator (current) use of insulin Hospital course: Ms. Moore is a 87 year old female who was brought to emergency room after family reported increased lethargy and weakness over the preceding 24 hours. She was evaluated in emergency room and found to have anemia with acute renal insufficiency and elevated TSH. She was admitted to [facility] for ongoing care needs. Initial orders were written by the emergency room physician. I saw her on December 09 and performed a history and physical. While transitioning between the bed and chair the morning of December 09 the patient had a brief episode of unresponsiveness. She was quickly placed on telemetry which showed a transient episode of third degree AV block. She was found to have hypotension. Following placement back in the bed she converted back to normal sinus rhythm with acceptable vital signs. I spoke with her daughter about the episode and the daughter stated she would come up after work hours and discuss with her mother possible transfer for pacemaker placement. The patient was agreeable for transfer and arrangements were completed for her to go to [facility] for ongoing care needs. - Time Spent with Patient Total time spent providing and/or coordinating discharge services: - Discharge Medications Home Medications: Aspirin 81 mg PO DAILY 12/29/14 [History] Insulin Glargine,Hum.rec.anlog [Lantus Solostar] 5 units SQ HS 12/29/14 [History ] Insulin LISPRO [HumaLOG] See Protocol SQ TIDWM 12/29/14 [History] Levothyroxine [Synthroid] 88 mcg PO DAILY 12/29/14 [History] Raloxifene [Evista] 60 mg PO DAILY 12/29/14 [History] Acetaminophen [Tylenol] 650 mg PO Q6HR PRN #30 tablet 01/03/15 [Rx] Carbidopa/Levodopa [Sinemet ] 1 each PO TID tablet 04/09/16 [Rx] Memantine [Namenda] 10 mg PO BID #0 tablet 04/09/16 [Rx] Nitroglycerin [Nitrostat] 0.4 mg SL Q5M PRN #1 vial 11/23/16 [Rx] Calcium Carbonate/Vitamin D3 [Calcium 600-Vit D3 200 Tablet] 2 each PO DAILY [History] Vit C/E/Zn/Coppr/Lutein/Zeaxan [Preservision Areds 2 Softgel] 2 cap PO DAILY [History] Allergies/Adverse Reactions: 3 Allergy/AdvReac Type Severity Reaction Status Date / Time Sulfa (Sulfonamide Allergy Hives Verified 04/04/16 08:45 Antibiotics) Date of admission: 12/08/17 18:48 Primary care physician: Say Vidales - Constitutional Vitals: Temp Pulse Resp BP Pulse Ox 98.8 F 74 20 170/71 92 12/09/17 18:25 12/09/17 18:25 12/09/17 18:25 12/09/17 18:25 12/09/17 18:25 - Patient Status Disposition: Transfer Other - Discharge Instructions
[2017-12-09] MEDS ORDERED: Insulin DETEMIR 100 UNIT/ML X5UNITS SQ SCH (21:00)
== END 2017-12-09 20:50 | disposition other institution (70) ==
LOC: EMEROOPIK 16:08 → INPPIK 16:08
PROVIDERS: ADMIT Internal Medicine; ATTEND Internal Medicine